=== PATIENT | female | born 1955 | race Asian ===

== ENCOUNTER 2023-04-07 08:59 | Outpatient (CLI) | payer OTHER | END 2023-04-07 09:00 | disposition home or self-care (01) | LOC: ULT 08:59 | PROVIDERS: ATTEND Internal Medicine Nephrology | DX: N18.4 Chronic kidney disease, stage 4 (severe) (principal); R80.9 Proteinuria, unspecified; R60.0 Localized edema; N28.1 Cyst of kidney, acquired; N20.0 Calculus of kidney | CPT/HCPCS: 76770; 93975 ==

== ENCOUNTER 2024-01-13 13:17 | Outpatient (CLI) | payer MEDICARE | END 2024-01-13 13:18 | disposition home or self-care (01) | LOC: DTY/OP 13:17 | PROVIDERS: ATTEND Family Medicine | DX: E11.65 Type 2 diabetes mellitus with hyperglycemia (principal) | CPT/HCPCS: 97802 ==

== ENCOUNTER 2024-01-15 15:38 | Outpatient (CLI) | payer MEDICARE | END 2024-01-15 15:39 | disposition home or self-care (01) | LOC: ULT 15:38 | PROVIDERS: ATTEND Family Medicine | DX: E04.2 Nontoxic multinodular goiter (principal) | CPT/HCPCS: 76536 ==